=== PATIENT | female | born 1945 | race Caucasian/White ===

== ENCOUNTER 2016-04-18 11:45 | Observation (INO) | payer BC ==
--- NOTE | 2016-04-18 12:05 | CPEKG ---
Heart Rate: 143 RR Interval: 420 QRSD Interval: 104 QT Interval: 340 QTC Interval: 525 QRS [place]: -48 T Wave [place]: 27 EKG Severity - ABNORMAL ECG - EKG Impression: JUNCTIONAL TACHYCARDIA EKG Impression: LEFT AXIS DEVIATION EKG Impression: PROLONGED QT INTERVAL Electronically Signed By: Alicia Bai 18-Apr-2016 14:24:50
--- NOTE | 2016-04-18 12:13 | EDPHY ---
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 The patient has been having recurrence of her symptoms. She states that 3 to 4 times a week she feels palpitations. Her most recent episode started this morning after eating. She went saw Dr. Gao in his office. There she was noted to be tachycardic. Vagal maneuvers did not work. Sent her to the emergency department for potential treatment with adenosine. I spoke with Dr. Gao prior to the patient's arrival. At this time the patient has no chest pain or shortness of breath. No leg pain or swelling. No recent illnesses. REVIEW OF SYSTEMS: My complete review of systems is negative except as mentioned in the HPI. Past Medical/Surgical History: Includes AVNRT Past surgical history: Includes ablation Social history: The patient is here with her . She does not smoke use alcohol. She is not taking caffeine. Smoking Status: Never smoked Physical Exam: Vitals noted GENERAL: Well-appearing, in no acute distress, alert. HEENT: Eyes normal to inspection, normal pharynx, no signs of dehydration. NECK: No thyromegaly, no lymphadenopathy, supple. RESPIRATORY: Clear to auscultation bilaterally, no rales, rhonchi or wheezing. CVS: Patient has an irregularly regular rhythm. It changes during the course of palpation. If fluxes between normal rate and tachycardia. No rubs, murmurs, or gallops. ABDOMEN: Soft, nontender, nondistended, no organomegaly. BACK: Normal to inspection, no CVA tenderness. SKIN: Normal color, no rash, warm, dry. No pallor. EXTREMITIES: No pedal edema, no calf tenderness, no Homans sign or cords, no joint swelling. NEURO/PSYCH: Alert and oriented x3, normal mood and affect, normal motor sensory exam. No obvious cranial nerve deficit. Constitutional: Initial Vital Signs Temperature (C) 36.5 C 04/18/16 11:48 Heart Rate 78 04/18/16 11:48 Respiratory Rate 16 04/18/16 11:48 O2 Sat (%) 99 04/18/16 11:48 O2 Delivery Mode Room Air Allergies/Adverse Reactions: Penicillins Allergy (Verified 08/22/15 06:46) Sulfa (Sulfonamide Antibiotics) Allergy (Verified 08/22/15 06:46) Home Medications: Medication Instructions Recorded Atorvastatin Calcium [Lipitor 20 20 mg PO HS 08/22/15 mg (*)] Estradiol [Estrace Vaginal (*)] 1 ivan VG MWF 08/22/15 Herbals/Supplements -Info Only 1 ea PO DAILY 08/22/15 Hydrochlorothiazide [HCTZ (*)] 25 mg PO DAILY 08/22/15 Levothyroxine [Synthroid 112 mcg 112 mcg PO DAILY06 08/22/15 (*)] Lisinopril [Zestril 20 mg (*)] 20 mg PO DAILY 08/22/15 Acetaminophen [Tylenol 325mg (*)] 325 - 650 mg PO Q4 PRN #0 tab 08/23/15 Aspirin [Aspirin 81mg (*)] 81 mg PO DAILY #0 tab.chew 08/23/15 Hydrochlorothiazide [HCTZ (*)] 25 mg PO DAILY #0 tab 08/23/15 Medical Decision Making ED Course/Re-evaluation: In the emergency department I met the patient on arrival. IV was placed. EKG was obtained. It was noted on the patient monitor that she had intermittent episodes of sinus rhythm. However she would fluctuate between sinus rhythm and AVNRT. I paged Dr. Gao and discussed the findings. I also discussed the case with Gio, OLUIE, from the cardiology service. He was in the emergency department. The patient will be admitted to Dr. Gao service for further evaluation. I discussed this with the patient and answered all her questions. Differential Diagnosis: Includes AVNRT, supraventricular tachycardia, ventricular tachycardia, electrolyte abnormality, sugar abnormality, thyroid disease, ACS, acute CA Departure - Departure Disposition: [facility] Inpatient Acute Clinical Impression: Supraventricular tachycardia Condition: Good Instructions: Supraventricular Tachycardia (ED) Referrals: Rajiv Hitchcock MD [Primary Care Provider] - As per Instructions Kavon Gao MD [Medical Doctor] - 2-3 days without fail
--- NOTE | 2016-04-18 12:16 | CPEKG ---
Heart Rate: 101 RR Interval: 594 P-R Interval: 136 QRSD Interval: 108 QT Interval: 336 QTC Interval: 436 P [place]: 28 QRS [place]: -15 T Wave [place]: 20 EKG Severity - ABNORMAL ECG - EKG Impression: SINUS TACHYCARDIA WITH IRREGULAR RATE 70-133 EKG Impression: INCOMPLETE RIGHT BUNDLE BRANCH BLOCK EKG Impression: CONSIDER ANTERIOR INFARCT Electronically Signed By: Alicia Bai 18-Apr-2016 14:24:50
[2016-04-18] MEDS ORDERED: METOPROLOL TARTRATE 25 MG TAB PO ONE (12:38)
[2016-04-18] MEDS ORDERED: ACETAMINOPHEN 325 MG TAB PO PRN (12:43)
[2016-04-18] MEDS ORDERED: ONDANSETRON 4 MG/2 ML VIAL IVP PRN (12:43)
[2016-04-18] MEDS ORDERED: ONDANSETRON DISINTEGRATING 4 MG TAB PO PRN (12:43)
[2016-04-18] MEDS ORDERED: METOPROLOL TARTRATE 25 MG TAB ONE (12:46)
[2016-04-18 12:58] LABS: HEMATOCRIT 51.7 % (38.0-47.0); HEMOGLOBIN 17.4 g/dL (12.6-16.3); MEAN CELL HEMOGLOBIN 31.7 pg (27.9-34.1); MEAN CELL HEMOGLOBIN CONCENTR. 33.7 g/dL (32.4-36.7); MEAN CELL VOLUME 94.2 fL (81.5-99.8); RED BLOOD CELL COUNT 5.49 10^6/uL (4.18-5.33); RED CELL DISTRIBUTION WIDTH 12.5 % (11.5-15.2)
[2016-04-18 13:06] LABS: ALANINE AMINOTRANSFERASE 40 IU/L (9-52); ALBUMIN 4.7 g/dL (3.5-5.0); ALKALINE PHOSPHATASE 95 IU/L (38-126); ANION GAP 13 mEq/L (8-16); ASPARTATE AMINOTRANSFERASE 31 IU/L (14-46); BILIRUBIN,TOTAL 1.1 mg/dL (0.1-1.4); CALCIUM 10.5 mg/dL (8.5-10.4); CARBON DIOXIDE 26 mEq/l (22-31); CHLORIDE 101 mEq/L (97-110); CREATININE 0.9 mg/dL (0.6-1.0); GLOMERULAR FILTRATION RATE > 60; GLUCOSE 108 mg/dL (70-100); POTASSIUM 4.1 mEq/L (3.5-5.2); SODIUM 140 mEq/L (134-144); TOTAL PROTEIN 8.2 g/dL (6.3-8.2)
--- NOTE | 2016-04-18 16:35 | GHP ---
DATE OF ADMISSION: 04/18/2016 INDICATION/CHIEF COMPLAINT: Palpitations. HISTORY OF PRESENT ILLNESS: The patient is a 70-year-old female with noted history of SVT, status p ost ablation procedure for AVNRT in August of 2015. She reports since her procedure she has still bee n having episodes of palpitations, happening 3 to 4 times a week. She denies any chest pressure, sh ortness of breath. Denies any lightheadedness, near-syncope, or syncopal events. She was seen at o ur office today by Dr. Gao, who found that she was in a supraventricular tachycardia with rates up 1 50 to 155 beats per minute. Vagal maneuvers were tried, including in the office, but unable to stop the SVT. Patient was sent to the emergency department for adenosine. Upon arrival to the ED, elec trocardiogram was done. It appears the patient has been converting into sinus rhythm with rates in the 60s to 70s for a few minutes and then spontaneously converts back to the supraventricular tachyc ardia with rates up to 130 BPM. Patient reports palpitations, but denies any chest pain or pressure . She denies of any lightheadedness or near-syncope. The patient reports she has been in her usual state of health, denies any recent fevers, chills, or night sweats. Denies any bleeding issues. B esides palpitations, has no other complaints. PAST MEDICAL HISTORY: Gastric ulcers in 2012, hypertension, hypercholesteremia, , AVNRT, and sleep apnea (CPAP at night). PAST SURGICAL HISTORY: Electrophysiology study with an AVNRT ablation in 2015. FAMILY HISTORY: Patient's brother with history of hypertension, mother with history of polycystic k idney disease. 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 She is currently . She calderon s never smoked. She reports occasional alcohol use. Denies any illicit drug use. ALLERGIES: Aspirin, penicillin, and sulfa. HOME MEDICATIONS: Claritin 10 mg p.o. daily; Prevacid 15 mg p.o. daily; estradiol 1 application Fri day, Friday, Friday; atorvastatin 20 mg p.o. h.s.; lisinopril 20 mg p.o. daily, Synthroid 112 mcg p.o. daily; hydrochlorothiazide 25 mg p.o. daily; acetaminophen 325 to 650 mg p.o. q.4 hours as nee ded. REVIEW OF SYSTEMS: A 10-point review of systems done on this patient all negative, except as mentio mireya above. PHYSICAL EXAMINATION: GENERAL: Mildly obese, female. She is alert and oriented to perso n, place, time, and situation. Appears to be under no acute distress. CURRENT VITAL SIGNS: Blood pressure of 106/81, heart rate 78, respirations 16, saturating 99% on room air. Temperature of 36.5 degrees Celsius. HEENT: Head is normocephalic. Lips and tongue are pink and moist with no signs of cyanosis. Conjunctivae pink. NECK: Trachea is midline, +2 carotid pulses bilateral, no auscult ated bruits, no jugular vein distention. RESPIRATORY: Lungs are clear to auscultation, no rhonchi, rales or wheezes, no accessory muscle use, no intercostal muscle retraction noted. CARDIAC: Irreg ular rate, irregular rhythm. No gallops, rubs, or murmurs noted. ABDOMEN: Soft, nontender, bowel sounds x4 quadrants, no organomegaly, no palpable masses. SKIN: [place], warm, dry. No cyanosis, no clubbing, no peripheral edema. VASCULAR: +2 radials bilateral, +2 carotids bilateral, +1 dorsal pe ofe and posterior tibial pulses bilateral. NEURO: Cranial nerves 2-12 grossly intact. DISCHARGE LABORATORY STUDIES: Laboratory studies today show WBC 9.42, hemoglobin of 17.4, hematocri t 51.7, platelet count 216. Sodium 140, potassium 4.1, chloride 101, CO2 26, BUN 24, creatinine 0.9 , glucose 108, calcium 10.5, magnesium 2.0, total bilirubin 1.1, AST 31, ALT 40, alkaline phosphate 95, total protein 8.2, albumin 4.7, TSH 1.710. STUDIES: Initial electrocardiogram shows narrow complex supraventricular tachycardia with heart rat e at 143 beats per minute. Repeat electrocardiogram at 12:11 today shows patient with episodes of s inus rhythm going in and out of a supraventricular tachycardia with ventricular rates up to 120 to 1 30 beats per minute. Echocardiogram done August 23, 2015, shows normal LV systolic function with EF of 65% to 70%, with hines tolic dysfunction. LA was mildly dilated, mild MR, mild TR, borderline pulmonary hypertension with RVSP at 40 mmHg, mild aortic calcification, fat pad versus trace anterior pericardial effusion with echogenicity within. No Doppler evidence of significant interatrial septal defect. ASSESSMENT AND PLAN: 1. Supraventricular tachycardia: Patient with past history of atrioventricular tommy reentrant tac hycardia, with ablation done August 2015. Reporting since procedure continuation of palpitations. Fo und to be in supraventricular tachycardia with ventricular rates up to 150 BPM today. Attempted to do vagal maneuvers without resolution. The patient brought down to the emergency department, with a ttempt of adenosine, but found to be going in and out of sinus rhythm. The patient denies any chest pressure or pain. Laboratory studies showed no anemia, normal electrolyte and renal function, norm al TSH level. At this time, after discussing with Dr. Gao, we will attempt to place her on oral bet a blockers to see if this helps resolve her paroxysmal supraventricular tachycardia. Will plan on a dmitting her overnight and continue monitoring her on the monitor. 2. Hypertension: Patient with significant history of hypertension. Currently when she goes into s upraventricular tachycardia, systolic blood pressure drops to the low 100s. The patient is asymptom atic of any lightheadedness with lower blood pressures. Due to the recurrence of her supraventricul ar tachycardia, we will hold her lisinopril at this time. We will cut her hydrochlorothiazide dose in half with starting on the metoprolol. We will continue to monitor and make adjustments as needed . 3. Hyperlipidemia: Patient with noted history of hyperlipidemia. Continue her home atorvastatin. 4. Sleep apnea: Patient with history of sleep apnea, uses CPAP at night. She can use her home CPA P for tonight. 5. Deep venous thrombosis precaution: Patient is up and walking. Have ordered support stockings. If she stays more than 1 night, will consider putting her on anticoagulation therapy. CODE STATUS: The patient is a full code. /[id number]/MODL
[2016-04-18] MEDS ORDERED: METOPROLOL TARTRATE 25 MG TAB PO SCH (21:00)
[2016-04-18] MEDS ORDERED: ATORVASTATIN CALCIUM 20 MG TAB PO SCH (21:00)
[2016-04-19 05:01] LABS: ANION GAP 10 mEq/L (8-16); CALCIUM 9.6 mg/dL (8.5-10.4); CARBON DIOXIDE 29 mEq/l (22-31); CHLORIDE 102 mEq/L (97-110); CREATININE 0.9 mg/dL (0.6-1.0); GLOMERULAR FILTRATION RATE > 60; GLUCOSE 105 mg/dL (70-100); MAGNESIUM 2.1 mg/dL (1.6-2.3); POTASSIUM 4.4 mEq/L (3.5-5.2); SODIUM 141 mEq/L (134-144)
[2016-04-19] MEDS ORDERED: LEVOTHYROXINE 112 MCG TAB PO SCH (06:00)
[2016-04-19] MEDS ORDERED: ESTRADIOL 42.5 GM CRTUBE VG SCH (08:00)
--- NOTE | 2016-04-19 08:06 | CPEKG ---
Heart Rate: 74 RR Interval: 811 P-R Interval: 140 QRSD Interval: 108 QT Interval: 360 QTC Interval: 400 P [place]: 70 QRS [place]: -15 T Wave [place]: 25 EKG Severity - ABNORMAL ECG - EKG Impression: SINUS RHYTHM EKG Impression: SUPRAVENTRICULAR BIGEMINY EKG Impression: PROBABLE LEFT ATRIAL ABNORMALITY EKG Impression: INCOMPLETE RIGHT BUNDLE BRANCH BLOCK EKG Impression: CONSIDER ANTERIOR INFARCT Electronically Signed By: Gasper Levy 19-Apr-2016 14:41:02
[2016-04-19 08:49] VITALS: BP 102/58; PULSE 70; RESP 18; TEMP 98.7; O2SAT 93
[2016-04-19] MEDS ORDERED: HYDROCHLOROTHIAZIDE 12.5 MG CAP PO SCH (09:00)
[2016-04-19] MEDS ORDERED: PANTOPRAZOLE SODIUM 40 MG TAB PO SCH (09:00)
[2016-04-19] MEDS ORDERED: METOPROLOL TARTRATE 50 MG TAB PO SCH (09:00)
[2016-04-19] MEDS: CETIRIZINE 10 MG TAB PO SCH ×2 (09:14→09:15)
--- NOTE | 2016-04-19 12:16 | GDS ---
ADMISSION DIAGNOSES: 1. Supraventricular tachycardia. 2. Hypertension. 3. Sleep apnea (CPAP). DISCHARGE DIAGNOSES: 1. Supraventricular tachycardia. 2. Hypertension. 3. Sleep apnea (CPAP). PROCEDURES DONE DURING HOSPITALIZATION: Electrocardiogram and continuous cardiac monitoring. BRIEF HISTORY: The patient is a 70-year-old female with noted history of paroxysmal supraventricula r tachycardia and hypertension. She underwent an AV electrophysiology study with AVNRT ablation don e by Dr. Gao in August 2015. She reports episodes of ongoing palpitations. She was seen in our offic e yesterday, and found to be in a supraventricular tachycardia at a rate of 150 BPM. She was sent d irectly to the emergency department. HOSPITAL COURSE: The patient arrived to the emergency department, and upon evaluation she appeared to be going in and out of supraventricular tachycardia with runs up to 30 seconds. Besides palpitat ions, she had been asymptomatic. She was denying any chest pain, shortness of breath, occasional li ghtheadedness with faster rates. After discussing with Dr. Gao, the patient was started on beta-blo ckers, and decided to monitor her overnight for further evaluation. The patient was eventually admi tted to the PCU from the emergency department for continuous monitoring. Until about 8:30 last nigh t, she continued to have small runs of PSVT, but all throughout the evening she has had no further e pisodes with the starting of metoprolol tartrate. She denies any chest pain, shortness of breath, o r symptoms suggesting of ischemia. PHYSICAL EXAMINATION: Done today. GENERAL APPEARANCE: Medium build, mildly obese, femal e. She is alert and oriented to person, place, time, and situation. Appears to be under no acute d istress. CURRENT VITAL SIGNS: Blood pressure of 102/58, heart rate of 70 beats per minute, respira tions 18, saturating 93% on room air, temperature 37.1 degrees Celsius. HEENT: Head is normocephal ic. Lips and tongue are pink and moist with no signs of cyanosis. Conjunctivae pink. NECK: Trach ea is midline, +2 carotid pulses bilateral. No auscultated bruits, no jugular vein distention. RES PIRATORY: Lungs clear to auscultation. No rhonchi, rales or wheezes. No accessory muscle use. No intercostal muscle retraction noted. CARDIAC: Regular rate, regular rhythm, S1, S2. No S3, S4, r ubs, gallops or murmurs. ABDOMEN: Soft, nontender. Bowel sounds x4 quadrants. No organomegaly, n o palpable masses. SKIN: [place], warm, dry. No cyanosis, no clubbing, no peripheral edema. VASCULA R: +2 carotids bilateral, +2 radials bilateral, +2 dorsal pedal and posterior tibial pulses bilater al. LABORATORY STUDIES: Drawn during hospitalization: On day of admission, WBC of 9.42, hemoglobin of 17.4, hematocrit 51.7, platelet count 216. This morning, sodium 141, potassium 4.4, chloride 102, B UN 24, creatinine 0.9, glucose 105, calcium 9.6, magnesium 2.1. Note the patient did have a TSH lev el drawn on day of admission of 1.710. Electrocardiogram done this morning shows sinus rhythm. DISCHARGE DISPOSITION: Patient will be discharged home in stable condition. She is to resume a nor mal diet. No significant activity restrictions. DISCHARGE MEDICATIONS: Please see discharge medication reconciliation sheet. Due to restarting her on metoprolol, we have discontinued her home lisinopril, and cut her hydrochlorothiazide in half to 12.5 mg p.o. daily. She has been started on metoprolol. She has been given a prescription for met oprolol tartrate 50 mg p.o. twice daily. DISCHARGE INSTRUCTIONS: SVT discharge instructions went over with the patient. Stay hydrated. Raul id caffeine and chit-noe-ekiwiiu medications that are arrhythmia proactive. We have also discussed her discharge medications. She has a followup appointment with Dr. Gao in 2 weeks' time. She will also follow up with her primary preassembler printed circuit board, Dr. King/Dr. Eisenberg. Dr. King was notified of bushra allen's admission to the hospital on the day of admission. Total time spent on discharge greater than 30 minutes. /[id number]/MODL
== END 2016-04-19 12:00 | disposition home or self-care (01) ==
LOC: F2W 16:58
PROVIDERS: ADMIT Internal Medicine Cardiovascular Disease; ATTEND Internal Medicine Cardiovascular Disease
DX: I47.1 Supraventricular tachycardia (principal); I10 Essential (primary) hypertension; G47.33 Obstructive sleep apnea (adult) (pediatric); E78.00 Pure hypercholesterolemia, unspecified
CPT/HCPCS: 93005; 99285; G0378

== ENCOUNTER 2017-09-15 10:55 | Observation (INO) | payer BC ==
[2017-09-15] MEDS ORDERED: NS 1,000 ML IV ONE (11:00)
--- NOTE | 2017-09-15 11:22 | CPEKG ---
Heart Rate: 66 RR Interval: 909 P-R Interval: 164 QRSD Interval: 106 QT Interval: 436 QTC Interval: 457 P [place]: 49 QRS [place]: -9 T Wave [place]: -7 EKG Severity - ABNORMAL ECG - EKG Impression: SINUS RHYTHM EKG Impression: PROBABLE LEFT ATRIAL ABNORMALITY EKG Impression: CONSIDER ANTERIOR INFARCT EKG Impression: BORDERLINE T ABNORMALITIES, INFERIOR LEADS Electronically Signed By: Eliane Lopez 15-Sep-2017 11:38:31
[2017-09-15 11:38] LABS: PLATELET COUNT 208 10^3/uL (150-400)
--- NOTE | 2017-09-15 12:01 | PDGENHP ---
History & Physical Chief Complaint: symptomatic svt Relevant Physical Exam: s1s2 rrr cta ao3 Cardiorespiratory Assessment: svt for repeat ablation. pt understands risk of av block is increased compared to index procedure, need for ts puncture
[2017-09-15 12:08] LABS: INR 1.06 (0.83-1.16)
--- NOTE | 2017-09-15 12:37 | PDANEPAE ---
ANE Past Medical History - Pulmonary History Hx Oxygen in Use at Home: No Hx Sleep Apnea: Yes - Endocrine History Hx Diabetes: No - Chronic Pain History Chronic Pain: No ANE Review of Systems Review of Systems: ANE Patient History - Allergies Allergies/Adverse Reactions: aspirin Allergy (Verified 04/18/16 13:57) Other-Enter Comments Penicillins Allergy (Verified 09/08/17 15:34) Other-Enter Comments Sulfa (Sulfonamide Antibiotics) Allergy (Verified 09/08/17 15:34) Rash - Home Medications Home Medications: Atorvastatin Calcium [Lipitor 20 mg (*)] 20 mg PO DAILY 08/22/15 [Last Taken 1 Day Ago ~09/14/17] Levothyroxine [Synthroid 112 mcg (*)] 112 mcg PO DAILY06 08/22/15 [Last Taken 1 Day Ago ~09/14/17] Loratadine [Claritin 10 mg] 10 mg PO DAILY 04/18/16 [Last Taken 1 Day Ago ~09/14] Budesonide [Rhinocort Allergy] 2 spray NS DAILY 09/08/17 [Last Taken 1 Day Ago ~ 09/14/17] Dexlansoprazole [Dexilant] 60 mg PO DAILY 09/08/17 [Last Taken 1 Day Ago ~] Hydrochlorothiazide [HCTZ (*)] 25 mg PO DAILY 09/08/17 [Last Taken 1 Day Ago ~] amLODIPine BESYLATE [Norvasc 5 mg (*)] 5 mg PO DAILY 09/08/17 [Last Taken 1 Day Ago ~09/14/17] - Smoking Hx Smoking Status: Never smoked ROSSI Labs/Vital Signs - Labs Result Diagrams: 09/15/17 11:30 09/15/17 11:30 - Vital Signs Height: 175.26 cm Weight: 103.873 kg ANE Physical Exam - Airway Neck exam: FROM Mallampati Score: Class 2 - Pulmonary Pulmonary: no respiratory distress - Cardiovascular Cardiovascular: regular rate and rhythym - ASA Status ASA Status: III ANE Anesthesia Plan Anesthesia Plan: general endotracheal anesthesia
[2017-09-15] MEDS ORDERED: ROCURONIUM 100 MG/10 ML VIAL ONE (12:45)
[2017-09-15] MEDS ORDERED: HEPARIN/DEXTROSE 25,000 UNIT/500 ML BAG ONE (12:48)
[2017-09-15] MEDS ORDERED: LIDOCAINE 1% 300 MG/30 ML SDV ONE (12:48)
[2017-09-15] MEDS ORDERED: HEPARIN 10,000 UNIT/10 ML MDV (1,000 UNIT/ML) ONE (12:48)
[2017-09-15] MEDS ORDERED: ISOPROTERENOL HCL/D5W 0.2 MG/50 ML BAG IV ONE (12:49)
[2017-09-15] MEDS ORDERED: BUPIVACAINE 0.75% 10 ML SDV ONE (12:49)
[2017-09-15] MEDS ORDERED: PHENYLEPHRINE 10 MG/ML SDV ONE (12:57)
[2017-09-15] MEDS ORDERED: MIDAZOLAM 2 MG/2 ML VIAL ONE (13:03)
[2017-09-15] MEDS ORDERED: PROPOFOL/EMULSION 500 MG/50 ML BOTTLE IV ONE ×2 (13:03→13:48)
[2017-09-15] MEDS ORDERED: fentaNYL 100 MCG/2 ML INJ ONE (13:03)
[2017-09-15] MEDS ORDERED: RANITIDINE 50 MG/2 ML VIAL ONE (14:30)
[2017-09-15] MEDS ORDERED: SUGAMMADEX SODIUM 200 MG/2 ML VIAL IVP ONE (14:37)
--- NOTE | 2017-09-15 15:11 | EPPROC ---
Electrophysiology Procedure Note: ELECTROPHYSIOLOGIC STUDY AND CATHETER MEDIATED ABLATION OF SLOW/FAST AV CANDIDO REENTRY TACHYCARDIA PROCEDURES PERFORMED: 12301-72 EP evaluation with RA/RV/LA pace/record, with arrhythmia induction 24841-01 EP evaluation with RA/RV pace record, insert/reposition catheter, with arrhythmia induction 87073 Intracardiac catheter ablation, SVT arrhythmogenic focus 24822 3D mapping Fluoroscopy INDICATION: Prior ablation for AVNRT at our institution Recurrent SVT PROCEDURE: Catheters & Anesthesia: The patient arrived in the Electrophysiology Laboratory in the fasting state. The right clavicular region, right groin, and left groin area were prepped and draped in the usual sterile manner. Anesthesiologist Dr. Alyson Lund administered general anesthesia. Appropriate non-invasive blood pressure, pulse oximetry and end-tidal CO2 monitoring was established. All catheters were placed percutaneously using the modified Seldinger technique , and advanced into position under fluoroscopic guidance. One #6 Italian hexapolar non-deflectable electrode catheter was inserted into the right atrial appendage via the left femoral vein (2mm spacing; except the proximal ring which was 25cm from the tip used for unipolar recordings). One #7 Italian deflectable octapolar electrode catheter was advanced to the His-bundle position via the left femoral vein (2mm spacing). One #7 Italian deflectable quadrapolar catheter was advanced to the anteroseptal right ventricle via the right femoral vein. One #7 Italian deflectable catheter with 10 pairs of electrodes was placed via the right femoral vein into the coronary sinus. Heparin was given to keep ACT > 200 s. Programmed stimulation was performed from the right atrium, right ventricle and coronary sinus (left atrium). Parahisian pacing demonstrated constant H-A interval with changing V-A intervals and stimulus-A intervals during capture and loss of capture of proximal RBB proving retrograde conduction over AV node. AVNRT was induced during infusion of isoproterenol 2 mcg/min. Ventricular extrastimuli delivered during tachycardia without altering antegrade His bundle activation did not advance next atrial potential, indicating that the tachycardia was not utilizing an accessory pathway for retrograde conduction. VA interval was 10 ms. Post entrainment of the tachycardia from the ventricle, there was VAHV response. Mapping of the right atrium and coronary sinus during AVNRT identified earliest atrial activation above the tendon of Leonela at a level slightly posterior to the level of the His bundle, consistent with retrograde conduction over the fast AV candido pathway. A #8 Italian deflectable quadrapolar electrode catheter (2mm-5mm-2mm spacing) with 4 mm tip electrode and sensor for the 3D mapping Carto system was advanced to the right atrium. 3 D mapping of the inter-atrial septum and coronary sinus was performed and location of the AV node was marked. A Mobi sheath was used. RF applications were delivered to the region between the tricuspid annulus and the coronary sinus ostium, at the level of the upper edge of the coronary sinus ostium. Radiofrequency applications were also delivered along the roof of the proximal coronary sinus and low midseptal TA. Junctional rhythm occurred during all of the RF applications. Programmed stimulation was continued post ablation at baseline and during graded doses of isoproterenol upto 4mcg/min. Sustained AVNRT was not inducible. There were no echo beats. The catheters were removed. The patient was transferred to the cardiovascular holding area in stable condition. Vascular access sheaths were removed in the EP lab after subcutaneous suture was placed. There were no apparent complications. Results: A. Spontaneous Intervals: Pre ablation SCL 870 ms AH 80 ms HV 40 ms Post ablation SCL 810 ms AH 70 ms HV 40 ms B. Antegrade AV candido function (decremental pacing) Pre ablation FPERP 610 ms SPERP 600 ms WBB CL 590 ms (reproducible echo beats at FPERP) Post ablation FPERP 460 ms WBB CL 450 ms C. Retrograde AV candido function (decremental pacing) Pre ablation FPERP 600 ms WBB CL 590 ms D. Arrhythmias: Sustained slow/fast AVNRT Cycle length 400 ms, AH interval 350 ms, HACKETT interval 50 ms VA interval 10 ms CONCLUSIONS 1. AV candido reentrant tachycardia using the slow AV candido pathway for antegrade conduction and the fast AV candido pathway for retrograde conduction. ( Slow/fast AVNRT). 2. Successful ablation of the slow AV candido pathway with elimination of 1:1 antegrade conduction over the slow AV candido pathway, all retrograde conduction over the slow AV candido pathway and the inducibility of AVNRT. 3. No complications. Patient Problems: Problems Problem Status Onset Supraventricular tachycardia Acute
[2017-09-15] MEDS ORDERED: NALOXONE HCL 0.4 MG/ML INJ IVP PRN (15:20)
[2017-09-15] MEDS ORDERED: ALBUTEROL 3 ML DEYVIAL IH PRN (15:20)
[2017-09-15] MEDS ORDERED: ONDANSETRON 4 MG/2 ML VIAL IVP PRN (15:20)
[2017-09-15] MEDS ORDERED: ACETAMINOPHEN 500 MG TAB PO PRN (15:20)
[2017-09-15] MEDS ORDERED: fentaNYL 100 MCG/2 ML INJ IVP PRN (15:20)
--- NOTE | 2017-09-15 15:21 | POSTANESTH ---
Post Anesthetic Evaluation Cardiovascular Status: Similar to Pre-Op Cond Respiratory Status: Similar to Pre-op Cond. Level of Consciousness/Mental Status: Alert and Oriented Pain Control: Adequate, Prn Tx Ordered Nausea/Vomiting Control: Adequate, Prn Tx Ordered Complications Possibly Related to Anesthesia: None Noted
--- NOTE | 2017-09-15 15:24 | CPEKG ---
Heart Rate: 70 RR Interval: 857 P-R Interval: 180 QRSD Interval: 112 QT Interval: 444 QTC Interval: 480 P [place]: 45 QRS [place]: 56 T Wave [place]: -8 EKG Severity - ABNORMAL ECG - EKG Impression: SINUS RHYTHM EKG Impression: PROBABLE LEFT ATRIAL ABNORMALITY EKG Impression: INCOMPLETE RIGHT BUNDLE BRANCH BLOCK Electronically Signed By: Eliane Lopez 15-Sep-2017 17:13:46
[2017-09-16 04:47] LABS: PLATELET COUNT 188 10^3/uL (150-400)
[2017-09-16] MEDS ORDERED: LEVOTHYROXINE 112 MCG TAB PO SCH (06:00)
[2017-09-16 07:18] VITALS: BP 121/75
--- NOTE | 2017-09-16 08:55 | CPEKG ---
Heart Rate: 59 RR Interval: 1017 P-R Interval: 164 QRSD Interval: 118 QT Interval: 448 QTC Interval: 444 P Tiffin: 52 QRS Tiffin: 0 T Wave Tiffin: -10 EKG Severity - ABNORMAL ECG - EKG Impression: SINUS RHYTHM EKG Impression: PROBABLE LEFT ATRIAL ABNORMALITY EKG Impression: INCOMPLETE RIGHT BUNDLE BRANCH BLOCK Electronically Signed By: Eliane Lopez 16-Sep-2017 11:56:16
[2017-09-16] MEDS ORDERED: ATORVASTATIN CALCIUM 20 MG TAB PO SCH (09:00)
[2017-09-16] MEDS ORDERED: HYDROCHLOROTHIAZIDE 25 MG TAB PO SCH (09:00)
[2017-09-16] MEDS ORDERED: amLODIPine BESYLATE 5 MG TAB PO SCH (09:00)
[2017-09-16] MEDS ORDERED: [UNRECOGNIZED DRUG - REMARK] NS SCH (09:00)
[2017-09-16] MEDS ORDERED: PANTOPRAZOLE SODIUM 40 MG TAB PO SCH (09:00)
[2017-09-16] MEDS ORDERED: CETIRIZINE 10 MG TAB PO SCH (09:00)
--- NOTE | 2017-09-16 09:40 | ECHO ---
[email or web address] [address] [address] Main: [phone] Fax: Transthoracic Echocardiogram Name: TOMY MARTINEZ MR#: [id number] Study Date: 09/16/2017 Study Time: 07:47 AM Date of : 1945 Age: 72 year(s) Height: 175.3 cm (69 in.) Weight: 103.87 kg (229 lb.) BSA: 2.19 m2 Gender: Female Examination: Echo Indication: F/U Post EP Study Image Quality: Adequate Contrast: Requested by: Kavon Gao BP: 121 mmHg/75 mmHg Heart Rate: Rhythm: Indication: F/U Post EP Study Procedure Staff Glass Products Inspector: Noemi Noriega RDCS Reading Physician: Jaymie North MD Requesting Provider: Conclusions: Normal size left ventricle. No LV hypertrophy. Normal global systolic LV function. EF is 59 %. No regional wall motion abnormality. Normal size right ventricle. Normal RV function. Mild to moderate mitral regurgitation. Mild to moderate tricuspid valve regurgitation. The pulmonary artery pressure is mildly increased. Right ventricular systolic pressure measures 37mmHg. No pericardial effusion. Measurements: Chambers Valvular Assessment AV/MV Valvular Assessment TV/PV Normal Normal Normal Name Value Range Name Value Range Name Value Range Ao Tiffanie (2D): 2.8 cm (1.4 cm-2.6 AV Vmax: 1.53 m/s (1 m/s-1.7 TR Vmax: 2.84 mm/s ( - ) cm) m/s) TR PGmax: 32 mmHg ( - ) IVSd (2D): 1.0 cm (0.6 cm-1.1 AV maxP mmHg ( - ) syst. PAP: 37 mmHg ( - ) cm) AV meanP mmHg ( - ) PV Vmax: 0.94 m/s (0.6 m/s-0.9 LVDd (2D): 5.0 cm (3.9 cm-5.3 VARINDER (VTI): 2.4 cm ( - ) m/s) cm) MV E Vmax: 1.19 m/s ( - ) PV PGmax: 4 mmHg ( - ) LVDs (2D): 3.3 cm (2.1 cm-4 MV A Vmax: 0.67 m/s ( - ) cm) MV E/A: 1.78 ( - ) LVPWd (2D): 1.0 cm ( - ) MV PHT: 0.077 s ( - ) LVOTd 2.0 cm 2.0 cm mm MVA (PHT): 2.9 s ( - ) LVEF (BP): 59 % (>=55 %) RVDd(2D): 3.5 cm (1.9 cm-3.8 cmmm) Patient: TOMY MARTINEZ Study Date: 09/16/2017 Page 1 of 2 07:47 AM Continued Measurements: Chambers Valvular Assessment AV/MV Valvular Assessment TV/PV Name Value Name Value Name Value LADs: 3.5 cm MV DecTime: 268 m/s CVP (est.): 5 mmHg LADs Lon.9 cm MV E' Septal: 0.06 m/s LA Area: 22.6 cm2 MV E/E' Septal: 18.50 LA Volume: 68 ml MV E/E' Lateral: 11.80 LA Volume Index: 31.1 ml/m2 RA Area: 21.1 cm2 Additional Vessels Name Value Ao Ascendin.3 cm Findings: Left Ventricle: Normal size left ventricle. No LV hypertrophy. Normal global systolic LV function. EF is 59 %. No regional wall motion abnormality. Normal diastolic LV function. Right Ventricle: Normal size right ventricle. Normal RV function. Left Atrium: The left atirum is borderline dilated. Right Atrium: The right atrium is normal in size. Mitral Valve: The mitral valve is normal in appearance and function. Mild to moderate mitral regurgitation. No mitral stenosis is present. Aortic Valve: The aortic valve is tri-leaflet. Trivial aortic valve regurgitation. No aortic valve stenosis is present. Tricuspid Valve: The tricuspid valve is normal in appearance and function. Mild to moderate tricuspid valve regurgitation. The pulmonary artery pressure is mildly increased. Right ventricular systolic pressure measures 37mmHg. Pulmonic Valve: The pulmonic valve is normal in appearance and function. There is no pulmonic regurgitation seen. Aorta: The aorta is normal. Normal size aortic root measuring 2.8 cm. Normal size ascending aorta measuring 3.3 cm. IVC: The IVC is normal sized. Pericardium: No pericardial effusion. No pleural effusion. (No Signature Object) Patient: TOMY MARTINEZ Study Date: 09/16/2017 Page 2 of 2 07:47 AM [id number]
[2017-09-16] MEDS ORDERED: LIDOCAINE 1% 5 ML SDV ONE (09:41)
--- NOTE | 2017-09-16 09:41 | ASMTCMCOM ---
CM Note CM Note Notes: Chart reviewed. 72 year old female s/p ablation with EP. No needs anticipated at discharge. CM available should needs arise. Plan: Likely home with out services when medically cleared for dc. Date Signed: 09/16/2017 09:40 AM Electronically Signed By:Hattie Graves RN
[2017-09-16] MEDS ORDERED: HYDROCODONE/APAP 5/325 TAB PO ONE (10:00)
--- NOTE | 2017-09-16 14:11 | GDS ---
[f rep st] DISCHARGE SUMMARY ADMISSION DIAGNOSES: 1. Paroxysmal supraventricular tachycardia. 2. Hypertension. 3. Hyperlipidemia. 4. Sleep apnea. DISCHARGE DIAGNOSES: 1. Paroxysmal supraventricular tachycardia. 2. Status post ablation for AVNRT. 3. Hypertension. 4. Hyperlipidemia. 5. Sleep apnea. PROCEDURES PERFORMED DURING HOSPITALIZATION: 1. Electrocardiogram. 2. Electrophysiology study. 3. AVNRT ablation. 4. Echocardiogram. BRIEF HISTORY: Please see H and P. Briefly, Ms. Lebron is a 72-year-old female with previous history of supraventricular tachycardia and ablation with an ablation done in 2017. Unfortunately, she had re currence of SVT, usually happening 1-2 times a day lasting from 15 minutes to 3 hours despite being o n metoprolol tartrate. She did see Dr. Gao, who felt she was an appropriate candidate to have a repea t electrophysiology study and potentially ablation as needed. HOSPITAL COURSE: Patient was admitted through CVC, prepped for procedure, and taken to electrophysio logy lab. There, Dr. Gao performed electrophysiology study, identifying slow pathway. At that point, he ablated an AVNRT accessory pathway. No apparent complications. Patient was transferred back to the CVC, and ultimately to the PCU for overnight observation. Patient reports she has had mild groin celestina n, but denies any chest pressure or pain. She has been up and walking in the unit without symptoms. D enies any shortness of breath, lightheadedness, palpitation, near-syncope or syncopal events. On cont inuous cardiac monitoring throughout the night, she has maintained sinus rhythm , with occasional PAC , but no other malignant arrhythmias or significant pauses noted. PHYSICAL EXAMINATION: GENERAL APPEARANCE: Today general appearance, medium built, mildly obese, Cauc female. She is alert and oriented to person, place, time, situation. Appears to be under no acu te distress. VITAL SIGNS: Current vital signs are blood pressure 121/75, heart rate 59, sinus yvonne o n the monitor. Respirations are 18, saturating 95% on room air. Temperature 36.4 degrees Celsius. AZEB NT: Head is normocephalic. Lips and tongue are pink and moist with no signs of cyanosis. Conjunctivae pink. NECK: Trachea is midline, +2 carotid pulses bilateral. No auscultated bruits. No jugular vein distention. RESPIRATORY: Lungs are clear to auscultation, no rhonchi, rales or wheezes. No accessory muscle use. No intercostal muscle retraction noted. CARDIAC: Regular rate, regular rhythm, S1, S2, no S3, S4, gallops, rubs or murmurs noted. ABDOMEN: Soft, nontender, bowel sounds x 4 quadrants, no org anomegaly, no palpable masses. SKIN: [place], warm, dry, no cyanosis, no clubbing, no peripheral edema. VASCULAR: +2 carotids bilateral, +2 radials bilateral, +1 dorsal pedal and posterior tibial pulses bi lateral. GROIN: Bilateral groin sites with no redness, swelling, drainage, ecchymosis, or hematoma at either site. No auscultated bruit noted. Suture removed on both groin sites with no complications. LABORATORY STUDIES: Laboratory studies drawn today showed WBC of 6.11, hemoglobin of 14.4, hematocri t of 42.5, platelet count 188. Sodium 142, potassium 3.6, chloride 105, CO2 27, BUN 21, creatinine 0. 8, glucose 84, calcium 9.4. Troponin of 0.094 noted. Expected elevated troponin levels post EP proced ure. PROCEDURES: Electrophysiology and ablation as mentioned above, morning echocardiogram noting normal LV size, no LVH, normal LV systolic function with no regional wall motion abnormalities. EF of 59%. M vjd-za-nefnwddt MR, qlgk-ie-efbkcdur TR, RVSP mildly increased at 37 mmHg. No pericardial effusion. Morning electrocardiogram showed sinus rhythm, RSR prime noted in V1 and V2, incomplete right bundle branch block. No significant ST or T-wave abnormalities. DISCHARGE DISPOSITION: The patient will be discharged home in stable condition. She is under activit y restrictions of not lifting more than 10 pounds for the next week and no strenuous activity for the next 2 weeks. DISCHARGE MEDICATIONS: Please see discharge medication reconciliation sheet. Note, the patient's met oprolol tartrate has been discontinued. DISCHARGE INSTRUCTIONS: Post SVT ablation discharge instructions gone over with the her spouse, inc luding monitoring for signs of infection, bleeding precautions, activity restrictions, DVT precaution s and using incentive spirometer. At the time of discharge, patient and her verbalized all in structions and have no questions or concerns. They have a followup appointment scheduled with Dr. Gao in 1 month's time. They have been told that if any problems or concerns come up post discharge, they are to notify our office or return to the hospital. Total time spent on discharge greater than 30 minutes. /[id number]/MODL
== END 2017-09-16 11:53 | disposition home or self-care (01) ==
LOC: FCATH 10:55 → F2W 15:11
PROVIDERS: ADMIT Internal Medicine Cardiovascular Disease; ATTEND Internal Medicine Cardiovascular Disease
DX: I47.1 Supraventricular tachycardia (principal); I10 Essential (primary) hypertension; E78.5 Hyperlipidemia, unspecified; G47.33 Obstructive sleep apnea (adult) (pediatric); Z88.0 Allergy status to penicillin; Z88.2 Allergy status to sulfonamides
CPT/HCPCS: 93005; 93306; 93613; 93621; 93623; 93653; C1730; C1732; G0378; C1731; C1766; J1644; J2250; J2370; J2704; J2780; J3010

== ENCOUNTER 2017-10-31 05:40 | Observation (INO) | payer BC ==
--- NOTE | 2017-10-29 12:30 | GHP ---
DATE OF ADMISSION: 10/31/2017 CHIEF COMPLAINT: Paraesophageal hernia. HISTORY OF PRESENT ILLNESS: This is a 72-year-old female here for evaluation of a paraesophageal her de. She has undergone both an upper endoscopy and an upper GI. The upper GI revealed a large mixed type hiatal hernia with nearly the entire stomach up in the thorax. Her upper endoscopy revealed ch ronic gastritis and esophagitis, as well as a paraesophageal hernia. She denies GERD symptoms. Howev er, she does endorse heart palpitations with certain foods. She did recently undergo cardioversion a pproximately 6 weeks ago for SVT by Dr. Gao. Per patient, her heart palpitations have resolved after her cardioversion. She has no other complaints at this time. PAST MEDICAL HISTORY: Hypertension, hyperlipidemia, sleep apnea, SVT, hypothyroidism. PAST SURGICAL HISTORY: None. MEDICATIONS: Amlodipine 5 mg, Claritin, Dexilant 60 mg, hydrochlorothiazide 25 mg, Lipitor 20 mg, Rh inocort Aqua 32 mcg per actuation nasal spray, Synthroid 112 mcg. ALLERGIES: She is allergic to penicillins and sulfa drugs. FAMILY MEDICAL HISTORY: Noncontributory. SOCIAL HISTORY: She is a nonsmoker, nondrinker, is and lives in [place]. REVIEW OF SYSTEMS: A 10-point review of systems was performed and is negative, except for what is do cumented in the HPI. PHYSICAL EXAM: GENERAL: This is a pleasant, well-dressed, well-appearing female. HEENT: Normoceph alic, atraumatic. No gross hearing deficit. Mucous membranes are moist. No scleral icterus. CARDI AC: Regular rate and rhythm. No clicks, murmurs, or rubs. CHEST: Clear to auscultation bilaterall y. No wheezes, rales, or rhonchi. ABDOMEN: Soft, nontender, nondistended. MUSCULOSKELETAL: Moves all extremities equally. NEURO: Grossly intact. PSYCHIATRIC: Appropriate mood and affect. IMPRESSION AND PLAN: This is a 72-year-old female with a paraesophageal hernia, who we will admit to the hospital to undergo planned surgery to repair her hernia. All risks and options have been discu ssed with the patient and she wishes to proceed. Risks of surgery include, but are not limited to in fection, bleeding, damage to surrounding structures, including stomach and bowel, heart attack, and d eath. /[id number]/MODL
[2017-10-31] MEDS ORDERED: CLINDAMYCIN 900 MG/DEXTROSE 50 ML IV ONE (06:04)
[2017-10-31] MEDS ORDERED: LR 1,000 ML IV ONE (06:05)
[2017-10-31] MEDS ORDERED: MIDAZOLAM 2 MG/2 ML VIAL IVP ONE (06:54)
--- NOTE | 2017-10-31 06:57 | PDANEPAE ---
ANE History of Present Illness laproscopic noa fudnoplication ANE Past Medical History - Cardiovascular History Hx Hypertension: Yes Hx Arrhythmias: Yes Hx Chest Pain: No Hx Coronary Artery / Peripheral Vascular Disease: No Hx CHF / Valvular Disease: No Hx Palpitations: No Cardiovascular History Comment: s/p ablation for AVNRT 08/2017 - Pulmonary History Hx COPD: No Hx Asthma/Reactive Airway Disease: No Hx Recent Upper Respiratory Infection: No Hx Oxygen in Use at Home: No Hx Sleep Apnea: Yes Sleep Apnea Screening Result - Last Documented: Positive - Neurologic History Hx Cerebrovascular Accident: No Hx Seizures: No Hx Dementia: No - Endocrine History Hx Diabetes: No Endocrine History Comment: hypothyroid - Renal History Hx Renal Disorders: No - Liver History Hx Hepatic Disorders: No - Neurological & Psychiatric Hx Hx Neurological and Psychiatric Disorders: No - Cancer History Hx Cancer: Yes Cancer History Comment: uterine CA, s/p hysterectomy - Congenital Disorder History Hx Congenital Disorders: No - GI History Hx Gastrointestinal Disorders: Yes Gastrointestinal History Comment: gastritis, hx of ulcer w/anemia, resolved on meds. paraesophageal hernia - Other Health History Other Health History: glasses for driving only. seasonal allergies - Chronic Pain History Chronic Pain: No - Surgical History Prior Surgeries: total hysterectomy 10/2016. SVT ablatation x 2 ANE Review of Systems Review of Systems: - Exercise capacity METS (RN): 4 METS ANE Patient History - Allergies Allergies/Adverse Reactions: adhesive tape Allergy (Verified 10/28/17 11:58) reddness around the adhesive area aspirin Allergy (Verified 10/28/17 11:57) due to stomach ulcer Penicillins Allergy (Verified 10/28/17 11:57) Rash, swelling in face Sulfa (Sulfonamide Antibiotics) Allergy (Verified 09/08/17 15:34) Rash - Home Medications Home medications: home medication list seen and reviewed Home Medications: Atorvastatin Calcium [Lipitor 20 mg (*)] 20 mg PO HS 08/22/15 [Last Taken ] Levothyroxine [Synthroid 112 mcg (*)] 112 mcg PO DAILY06 08/22/15 [Last Taken ] Loratadine [Claritin 10 mg] 10 mg PO DAILY 04/18/16 [Last Taken 10/31/17] Budesonide [Rhinocort Allergy] 2 spray NS DAILY 09/08/17 [Last Taken 10/31/17] Hydrochlorothiazide [HCTZ (*)] 25 mg PO DAILY 09/08/17 [Last Taken 10/30/17] amLODIPine BESYLATE [Norvasc 5 mg (*)] 5 mg PO DAILY 09/08/17 [Last Taken ] Dexlansoprazole [Dexilant] 60 mg PO DAILY 09/15/17 [Last Taken 10/31/17] - NPO status NPO Status: no food or drink >8 hours - Anes Hx Anes Hx: no prior problems - Smoking Hx Smoking Status: Never smoked - Alcohol Use Alcohol Use: Rarely - Family Anes Hx Family Anes Hx: none Family Hx Anesthesia Complications: none ANE Labs/Vital Signs - Vital Signs Height: 175.26 cm Weight: 100.698 kg ANE Physical Exam - Airway Neck exam: FROM Mallampati Score: Class 2 Mouth exam: normal dental/mouth exam - Pulmonary Pulmonary: no respiratory distress - Cardiovascular Cardiovascular: regular rate and rhythym - ASA Status ASA Status: II ANE Anesthesia Plan Anesthesia Plan: general endotracheal anesthesia
--- NOTE | 2017-10-31 07:05 | PDHPUP ---
History & Physical Update H&P update statement: This history and physical update is based on an assessment of the patient which was completed after admission or registration (within 24 hours), but prior to the surgery/procedure. H&P update: H&P reviewed & patient examined, no change in patient's condition since H&P completed
[2017-10-31] MEDS ORDERED: fentaNYL 100 MCG/2 ML INJ ONE ×2 (07:17→10:25)
[2017-10-31] MEDS ORDERED: PROPOFOL/EMULSION 500 MG/50 ML BOTTLE IV ONE (07:17)
[2017-10-31] MEDS ORDERED: ONDANSETRON 4 MG/2 ML VIAL ONE (07:17)
[2017-10-31] MEDS ORDERED: ROCURONIUM 50 MG/5 ML VIAL ONE (07:17)
[2017-10-31] MEDS ORDERED: DEXAMETHASONE 4 MG/ML VIAL ONE ×2 (07:17)
[2017-10-31] MEDS ORDERED: LIDOCAINE 2% 100 MG/5 ML SYR ONE (07:17)
[2017-10-31] MEDS ORDERED: REMIFENTANIL HCL 1 MG VIAL ONE (07:17)
[2017-10-31] MEDS ORDERED: LIDOCAINE HCL 160 MG/4 ML LTA KIT TP ONE (07:18)
[2017-10-31] MEDS ORDERED: BUPIVACAINE 0.5% 30 ML SDV ONE (07:24)
[2017-10-31] MEDS ORDERED: HEPARIN 1000 UNIT/1 ML MDV ONE (07:24)
[2017-10-31] MEDS ORDERED: ceFAZolin 1 GM/5 ML SYR ONE (07:25)
[2017-10-31] MEDS ORDERED: ePHEDrine SULFATE 25 MG/5 ML SYR ONE (07:32)
[2017-10-31] MEDS ORDERED: PHENYLEPHRINE HCL 100 MCG/ML SYR ONE (07:55)
[2017-10-31] MEDS ORDERED: oxyCODONE IR 5 MG TAB PO PRN ×2 (09:33→09:54)
[2017-10-31] MEDS ORDERED: DEXAMETHASONE 4 MG/ML VIAL IVP PRN (09:33)
[2017-10-31] MEDS ORDERED: PROMETHAZINE HCL 25 MG/ML INJ IVP PRN (09:33)
[2017-10-31] MEDS ORDERED: ACETAMINOPHEN 500 MG TAB PO PRN (09:33)
[2017-10-31] MEDS ORDERED: NALOXONE HCL 0.4 MG/ML INJ IVP PRN (09:33)
[2017-10-31] MEDS ORDERED: LR 500 ML IV PRN (09:33)
[2017-10-31] MEDS ORDERED: ALBUTEROL 3 ML DEYVIAL IH PRN (09:33)
[2017-10-31] MEDS ORDERED: LABETALOL HCL 5 MG/ML 20 ML MDV IVP PRN (09:33)
[2017-10-31] MEDS ORDERED: MEPERIDINE 25 MG/0.5 ML AMP IVP PRN (09:33)
[2017-10-31] MEDS ORDERED: ONDANSETRON 4 MG/2 ML VIAL IVP PRN ×2 (09:33→09:55)
[2017-10-31] MEDS ORDERED: METOCLOPRAMIDE 10 MG/2 ML VIAL IVP PRN (09:33)
[2017-10-31] MEDS ORDERED: HYDROCODONE/APAP 5/325 TAB PO PRN (09:33)
[2017-10-31] MEDS ORDERED: PHENYLEPHRINE HCL 100 MCG/ML SYR IVP PRN (09:33)
[2017-10-31] MEDS ORDERED: NEOSTIGMINE METHYLSULFATE 5 MG/5 ML SYR ONE (09:35)
--- NOTE | 2017-10-31 09:52 | POSTOPPROG ---
Post Op Note Date of Operation: 10/31/17 Surgeon: Sukumar Abreu Lead Cargo Mover: Kyrie Anesthesiologist: Zachary Anesthesia: GET(General Endotracheal) Pre-op Diagnosis: Hiatal hernia Post-op Diagnosis: same Indication: same Procedure: Lap hiatal hernia repair with noa fundoplications Findings: entire stomach in the thorax Inf/Abcess present in the surg proc area at time of surgery?: No Depth: Organ Space EBL: Minimal
[2017-10-31] MEDS ORDERED: ONDANSETRON DISINTEGRATING 4 MG TAB PO PRN (09:55)
[2017-10-31] MEDS: fentaNYL 100 MCG/2 ML INJ IVP PRN ×2 (10:26→10:32)
--- NOTE | 2017-10-31 11:02 | GOP ---
DATE OF OPERATION: 10/31/2017 SURGEON: Sukumar Abreu MD TELEVISION CAMERAMAN: Chio Mittal NP. ANESTHESIA: Dr. Sharma. PREOPERATIVE DIAGNOSIS: Giant hiatal hernia. POSTOPERATIVE DIAGNOSIS: Giant hiatal hernia. PROCEDURE PERFORMED: Laparoscopic hiatal hernia repair and Anne fundoplication. FINDINGS: Patient was found to have nearly her entire stomach in the chest. ESTIMATED BLOOD LOSS: Blood loss negligible. No complications. Taken to recovery room in good condition. DESCRIPTION OF PROCEDURE: Patient was taken to the operating room, where she received satisfactory g eneral endotracheal anesthesia by Dr. Sharma. She was placed in supine position, split leg position. She was prepped and draped in usual sterile fashion. A supraumbilical incision was made. A Veress needle inserted. Pneumoperitoneum was established. Trocar was introduced. Laparoscope introduced. Adequate visualization was obtained. 4 other trocars were placed in the upper abdomen under direct v ision. The left lateral segment of the liver was quite enlarged, but it was elevated up with a retra ctor. The hiatus was exposed. The stomach was gradually reduced back into the abdomen. Appeared to have partially torsed but was quite viable. It was carefully retracted down to the abdomen. The cr ura were identified and skeletonized and circumferentially the large hiatal hernia sac was divided un til all the lower esophagus was well exposed and could be brought down into the abdomen. After adequ ate exposure, the short gastrics were divided with the Harmonic scalpel, and then a Anne fundoplica tion wrap was created. Prior to that, however, the diaphragm was closed with interrupted 0 Ethibond sutures. There was a fair amount of tension on the closure, but was able to have reasonably snug hia jenna closure. The wrap was then passed in retroesophageal tunnel and the Anne wrap was created with interrupted 0 Ethibond sutures securing the anterior wall of the stomach to the anterior wall of the esophagus, and then to the Anne fundoplication wrap. Good loose floppy wrap was created over a 52 bougie dilator. Dilator was removed. The hiatal closure appeared to be adequate. Trocars removed under direct vision. Trocar sites were closed with 4-0 Monocryl subcuticular stitch for the skin. A ll layers infiltrated with 0.5% Marcaine. /[id number]/MODL
--- NOTE | 2017-10-31 11:13 | POSTANESTH ---
Post Anesthetic Evaluation Cardiovascular Status: Normal, Stable Respiratory Status: Normal, Stable Level of Consciousness/Mental Status: Can Participate in Eval Pain Control: Adequate, Prn Tx Ordered Nausea/Vomiting Control: Adequate, Prn Tx Ordered Complications Possibly Related to Anesthesia: None Noted
[2017-10-31] MEDS: HYDROmorphone HCL 0.5 MG/0.5 ML SYR IVP PRN (11:51)
[2017-10-31] MEDS: POTASSIUM Cl (KCl) 10 MEQ in D5W 1/2 NS 1,000 ML IV SCH ×3 (11:58→21:54)
--- NOTE | 2017-10-31 13:15 | ASMTCMCOM ---
CM Note CM Note Notes: Spoke w/ RN, pt admitted for scheduled surgery. Anticipate pt will dc home w/support of when medically stable. CM available for any changes. DC Plan: Independent Date Signed: 10/31/2017 12:54 PM Electronically Signed By:Iris Wong RN
[2017-10-31] MEDS: ACETAMINOPHEN 325 MG TAB PO PRN (16:37)
[2017-11-01] MEDS: HYDROmorphone HCL 0.5 MG/0.5 ML SYR IVP PRN (04:08)
[2017-11-01] MEDS: POTASSIUM Cl (KCl) 10 MEQ in D5W 1/2 NS 1,000 ML IV SCH (04:50)
--- NOTE | 2017-11-01 09:13 | SOAPPROG ---
SOAP Progress Note Assessment/Plan: Assessment/Plan: 72 y F s/p lap hiatal hernia repair c Anne fundoplication, POD#1. Clears this am. Soft diet later today if tolerates clears. Dispo: pending tolerance of diet. Maybe later today, more likely tomorrow. S: some pain in shoulders. has had ice chips. no n/v. some belching. no flatus. O: alert, nad no wob seen while on the commode, seen with RN. 11/01/17 09:11 Objective: Vital Signs Temp Pulse Resp BP Pulse Ox 36.9 C 66 16 146/75 H 98 11/01/17 08:00 11/01/17 08:00 11/01/17 08:00 11/01/17 08:00 11/01/17 08:00 10/31/17 11/01/17 11/02/17 05:59 05:59 05:59 Intake Total 1450 Output Total 2100 Balance -650 ICD10 Worksheet Patient Problems: Problems Problem Status Onset Supraventricular tachycardia Acute
--- NOTE | 2017-11-01 15:59 | ASMTCMCOM ---
CM Note CM Note Notes: Spoke with pt and in the room. Pt is post op day 1 for hiatal hernia repair. Pt to discharge once tolerating solid foods, likely tomorrow. Plans to discharge home independently with . No further CM needs noted at this time. CM available should needs change. D/C Plan: Independent Date Signed: 11/01/2017 03:58 PM Electronically Signed By:Radha Delaney
[2017-11-01] MEDS: ACETAMINOPHEN 325 MG TAB PO PRN (21:15)
[2017-11-02] MEDS: ACETAMINOPHEN 325 MG TAB PO PRN (03:56)
[2017-11-02 07:56] VITALS: BP 139/98
--- NOTE | 2017-11-02 10:39 | ASMTLACE ---
LACE Length of stay for Answers: 2 days current admission Comorbidities - select Answers: Other Notes: HTN, Hyperlipedemia all that apply Score: 3 Date Signed: 11/02/2017 10:38 AM Electronically Signed By:Anju Rivas LCSW
--- NOTE | 2017-11-02 10:43 | ASDISCHSUM ---
Discharge Information Plan Status:Home with No Needs Medically Cleared to Leave:11/02/2017 Discharge Date:11/02/2017 CM D/C Disposition:Home, Routine, Self-Care ADT D/C Disposition:Home, Routine, Self-Care Projected Discharge Date:11/02/2017 11:00 AM Transportation at D/C:Family Discharge Delay Reason: Follow-Up Date:11/02/2017 11:00 AM Discharge Slot:1 - 8:01 am - 12:00 noon Final Diagnosis:Hiatal hernia Placement Information Patient Contact Information Contact Name:JEANNETTE Relationship: Address:[address] [address] City:[place] Alternate Phone: State/Zip Code:[place] [phone] Email: Financial Information Financial Class:BCOP Primary Plan Desc:[email or web address] [facility] Primary Plan Number:[id number] Secondary Plan Desc: Secondary Plan Number: Assessment Information LACE LACE Length of stay for Answers: 2 days current admission Comorbidities - select Answers: Other Notes: HTN, Hyperlipedemia all that apply Score: 3 Date Signed: 11/02/2017 10:38 AM Electronically Signed By:Anju Rivas LCSW [facility] CM Progress Note CM Note CM Note Notes: Spoke w/ RN, pt admitted for scheduled surgery. Anticipate pt will dc home w/support of when medically stable. CM available for any changes. DC Plan: Independent Date Signed: 10/31/2017 12:54 PM Electronically Signed By:Iris Wong RN [facility] CM Progress Note CM Note CM Note Notes: Spoke with pt and in the room. Pt is post op day 1 for hiatal hernia repair. Pt to discharge once tolerating solid foods, likely tomorrow. Plans to discharge home independently with . No further CM needs noted at this time. CM available should needs change. D/C Plan: Independent Date Signed: 11/01/2017 03:58 PM Electronically Signed By:Radha Delaney Case Management Discharge Plan Note Case Management Discharge Discharge Order Complete? Answers: Yes Patient to Obtain Answers: via Family Medications Transportation Arranged Answers: Family/Friends Transport will Pick (Date 11/02/2017 11:00 AM & Time) Family Notified Answers: Yes Notes: to transport Discharge Comments Notes: Patient has been discharged home with her . No other needs. Date Signed: 11/02/2017 10:42 AM Electronically Signed By:Anju Rivas LCSW Intervention Information
== END 2017-11-02 13:59 | disposition home or self-care (01) ==
LOC: F3E 05:40
PROVIDERS: ADMIT Surgery; ATTEND Surgery
PROC: 0DV44ZZ Restriction of Esophagogastric Junction, Percutaneous Endoscopic Approach (ICD-10-PCS; principal; 2017-10-31 07:15)
PROC: 0BQT4ZZ Repair Diaphragm, Percutaneous Endoscopic Approach (ICD-10-PCS; principal; 2017-10-31 07:15)
DX: K44.9 Diaphragmatic hernia without obstruction or gangrene (principal); I10 Essential (primary) hypertension; E78.5 Hyperlipidemia, unspecified; G47.30 Sleep apnea, unspecified; E03.9 Hypothyroidism, unspecified
CPT/HCPCS: 49659; G0378; J1100; J1170; J2001; J2250; J2370; J2405; J2704; J2710; J3010; J3480